=== PATIENT | male | born 1935 | race Caucasian/White ===

== ENCOUNTER 2019-03-06 19:40 | Emergency (ER) | payer MEDICARE, MEDICAID ==
[~2019-03-06] VITALS: Ht 167.6 cm; Wt 54.4 kg
[2019-03-06] MEDS ORDERED: DEXAMETHASONE SOD PHOSPHATE 10 MG/ML VIAL IV ONE (20:30)
[2019-03-06] MEDS ORDERED: ACETAMINOPHEN 325 MG TABLET PO ONE (20:30)
--- NOTE | 2019-03-06 21:19 | NUR ---
DOCTOR TERA IN TO SEE PATIENT. PATIENT C/O LEAKING CATHETER AND REPORTS HAVING LEG RASH. TO LEFT FREEMAN. DR. HALEY WANTS FOLECY CATHETER REPLACED.
[2019-03-06] MEDS ORDERED: LIDOCAINE 2% JEL UROJET 10 ML MM ONE ×2 (21:30→21:32)
--- NOTE | 2019-03-06 22:00 | NUR ---
FC DISCONTINUED. NEW 16 FR MELENDEZ CATEHTER PLACED. PATIENT TOLERATED PROCEDURE WELL. DRAAINGING YELLOW CLEAR URINE WITH SOME SEDIMENT SEEN. NEW LEG BAG ATTACHED. REVIEWED DISCHARGE INSTRUCTIONS WITH PATIENT. QUESTIONS CONCERNS ADDRESSED.
[2019-03-06 22:19] VITALS: BP 125/73
== END 2019-03-06 22:22 | disposition home or self-care (01) ==
LOC: ER 19:44
DX: T83.031A Leakage of indwelling urethral catheter, initial encounter (principal); I10 Essential (primary) hypertension; N40.0 Benign prostatic hyperplasia without lower urinary tract symptoms; Z95.0 Presence of cardiac pacemaker
CPT/HCPCS: 51702; 99284; J3490